=== PATIENT | female | born 1950 | race Caucasian/White ===

== ENCOUNTER 2016-09-20 11:04 | Inpatient (IN) | payer OTHER ==
[~2016-09-20] VITALS: Ht 149.9 cm; Wt 70.8 kg
[2016-09-20 11:57] LABS: BASOPHIL % 0.3 % (0-2); PLATELET COUNT 234 x10^3mcL (130-400)
[2016-09-20 11:58] LABS: RED CELL DISTRIBUTION WIDTH 16.5 % (11.5-14.5)
[2016-09-20 12:02] LABS: CALCIUM 9.3 mg/dL (8.5-10.1); CARBON DIOXIDE 36.7 mmol/L (21-32); CHLORIDE SERUM 100 mmol/L (98-107); CREATININE SERUM 0.9 mg/dL (0.6-1.0); GFR1 > 60 mL/min; GLUCOSE SERUM 240 mg/dL (74-106); POTASSIUM SERUM 3.7 mmol/L (3.5-5.1); SODIUM SERUM 142 mmol/L (136-145)
[2016-09-20 12:07] LABS: ALBUMIN 3.3 g/dL (3.4-5.0); ALKALINE PHOSPHATASE 95 U/L (46-116); ALT/SGPT 39 U/L (14-59); AST/SGOT 41 U/L (15-37); BILIRUBIN TOTAL 0.4 mg/dL (0.20-1.00)
[2016-09-20 13:59] LABS: MAGNESIUM 1.3 mg/dL (1.8-2.4)
[2016-09-20 14:04] LABS: HDL CHOLESTEROL 48 mg/dL (40-60)
[2016-09-20 14:11] LABS: FREE T4 1.19 ng/dL (0.76-1.46); FREE THYROXINE INDEX 3.6 ug/dL (1.4-4.5); T3 TOTAL 1.39 ng/mL; T4(THYROXINE) 10.7 ug/dL (4.7-13.3)
[2016-09-20 14:22] LABS: TRIGLYCERIDES 475 mg/dL (<150)
[2016-09-20 14:23] LABS: CHOLESTEROL 212 mg/dL (<200); CHOLESTEROL/HDL RATIO 4.4
[2016-09-20 15:15] VITALS: BP 165/64
[2016-09-20 15:24] LABS: microscopic required? NO
[2016-09-20 16:18] LABS: urine erythrocyte NEGATIVE (NEGATIVE)
[2016-09-20 17:16] VITALS: BP 147/54
[2016-09-20] MEDS ORDERED: METFORMIN HCL850 MG PO (17:47)
[2016-09-20] MEDS ORDERED: PLA75 PO (17:48)
[2016-09-20] MEDS ORDERED: OYSCO 500-VIT1 EACH PO (17:49)
[2016-09-20] MEDS ORDERED: BENAZEPRIL HCL/1 TAB PO (17:50)
[2016-09-20] MEDS ORDERED: ASPIRIN LOW DOS81 MG PO (17:51)
[2016-09-20] MEDS ORDERED: ATENOLOL25 MG PO (17:51)
[2016-09-20] MEDS ORDERED: CILOSTAZOL50 M1 PO (17:52)
[2016-09-20] MEDS ORDERED: ANTI-GAS ULTRA180 MG PO (17:53)
[2016-09-20] MEDS ORDERED: TOUJEO300 U/ML (17:54)
[2016-09-20] MEDS ORDERED: NOVOLOG MIX 70/33 ML SQ ×2 (17:55)
[2016-09-20 21:13] VITALS: BP 108/62
[2016-09-21 05:59] VITALS: BP 133/50
[2016-09-21 06:04] LABS: BASOPHIL % 0.2 % (0-2); PLATELET COUNT 215 x10^3mcL (130-400)
[2016-09-21 06:22] LABS: CALCIUM 8.6 mg/dL (8.5-10.1); CARBON DIOXIDE 32.8 mmol/L (21-32); CHLORIDE SERUM 105 mmol/L (98-107); CREATININE SERUM 0.9 mg/dL (0.6-1.0); GFR1 > 60 mL/min; GLUCOSE SERUM 142 mg/dL (74-106); MAGNESIUM 1.8 mg/dL (1.8-2.4); POTASSIUM SERUM 3.9 mmol/L (3.5-5.1); SODIUM SERUM 143 mmol/L (136-145)
[2016-09-21 06:42] LABS: RED CELL DISTRIBUTION WIDTH 16.8 % (11.5-14.5)
[2016-09-21 09:19] VITALS: BP 156/50
[2016-09-21 13:44] VITALS: BP 147/54
[2016-09-21 21:26] VITALS: BP 155/57
[2016-09-22 06:18] VITALS: BP 146/53
[2016-09-22 06:30] LABS: BASOPHIL % 0.5 % (0-2); PLATELET COUNT 195 x10^3mcL (130-400)
[2016-09-22 06:40] LABS: CALCIUM 8.2 mg/dL (8.5-10.1); CARBON DIOXIDE 27.6 mmol/L (21-32); CHLORIDE SERUM 108 mmol/L (98-107); CREATININE SERUM 0.8 mg/dL (0.6-1.0); GFR1 > 60 mL/min; GLUCOSE SERUM 197 mg/dL (74-106); POTASSIUM SERUM 4.2 mmol/L (3.5-5.1); SODIUM SERUM 143 mmol/L (136-145)
[2016-09-22 07:00] LABS: RED CELL DISTRIBUTION WIDTH 16.5 % (11.5-14.5)
[2016-09-22 07:21] LABS: RED BLOOD CELLS 4.2 M/mm3 (4.10-5.10)
[2016-09-22 08:35] VITALS: BP 149/64
[2016-09-22 08:41] LABS: IRON 58 ug/dL (50-170); TOTAL IRON BINDING CAPACITY 328 ug/dL (250-450)
[2016-09-22] MEDS ORDERED: METFORMIN HCL1000 MG PO (09:55)
[2016-09-22] MEDS ORDERED: THERA TABS1 TAB PO (09:56)
[2016-09-22] MEDS ORDERED: LIPITOR40 MG PO (09:57)
[2016-09-22 13:13] VITALS: BP 174/54
[2016-09-22 13:23] VITALS: BP 174/54
[2016-09-22 14:56] VITALS: BP 162/78
[2016-09-22 15:53] VITALS: BP 157/78
== END 2016-09-22 19:50 | disposition home or self-care (01) | DRG 304 ==
LOC: ED 11:04 → DU 13:24
PROVIDERS: Emergency Medicine; ADMIT Family Medicine
DX: I16.1 Hypertensive emergency (principal); N17.0 Acute kidney failure with tubular necrosis; D68.69 Other thrombophilia; E44.1 Mild protein-calorie malnutrition; E11.65 Type 2 diabetes mellitus with hyperglycemia; E11.51 Type 2 diabetes mellitus with diabetic peripheral angiopathy without gangrene; E83.42 Hypomagnesemia; E86.0 Dehydration; I10 Essential (primary) hypertension; D50.9 Iron deficiency anemia, unspecified; E78.5 Hyperlipidemia, unspecified; E66.9 Obesity, unspecified; Z79.82 Long term (current) use of aspirin; Z79.4 Long term (current) use of insulin; Z68.31 Body mass index [BMI] 31.0-31.9, adult; Z79.84 Long term (current) use of oral hypoglycemic drugs; Z86.73 Personal history of transient ischemic attack (TIA), and cerebral infarction without residual deficits
CPT/HCPCS: 82962; 83880; 84439; J0360; J2405; J3475; J7030; Q0092

== ENCOUNTER 2016-09-29 14:50 | Emergency (ER) | payer OTHER ==
[~2016-09-29 14:50] MED LIST: ANTI-GAS ULTRA180 MG PO; ASPIRIN LOW DOS81 MG PO; ATENOLOL25 MG PO; BENAZEPRIL HCL/1 TAB PO; CILOSTAZOL50 M1 PO; LIPITOR40 MG PO; METFORMIN HCL1000 MG PO; METFORMIN HCL850 MG PO; NOVOLOG MIX 70/33 ML SQ; OYSCO 500-VIT1 EACH PO; PLA75 PO; THERA TABS1 TAB PO; TOUJEO300 U/ML
[2016-09-29 16:48] VITALS: BP 157/81
== END 2016-09-29 16:48 | disposition home or self-care (01) ==
LOC: ED 14:50
DX: B34.9 Viral infection, unspecified (principal); J98.01 Acute bronchospasm; I10 Essential (primary) hypertension; E78.5 Hyperlipidemia, unspecified; E11.9 Type 2 diabetes mellitus without complications; Z88.0 Allergy status to penicillin; Z79.899 Other long term (current) drug therapy
CPT/HCPCS: J7512; J7613; J7644; Q0092

== ENCOUNTER 2016-10-27 22:05 | Emergency (ER) | payer OTHER ==
[2016-10-27 22:16] VITALS: BP 160/68
== END 2016-10-28 00:02 | disposition home or self-care (01) ==
LOC: ED 22:05
DX: S40.011A Contusion of right shoulder, initial encounter (principal); S50.01XA Contusion of right elbow, initial encounter; S16.1XXA Strain of muscle, fascia and tendon at neck level, initial encounter; S09.90XA Unspecified injury of head, initial encounter; I10 Essential (primary) hypertension; E11.9 Type 2 diabetes mellitus without complications; Z79.84 Long term (current) use of oral hypoglycemic drugs; Z79.899 Other long term (current) drug therapy; Z79.82 Long term (current) use of aspirin; Z79.4 Long term (current) use of insulin; W07.XXXA Fall from chair, initial encounter; Y93.89 Activity, other specified; Y92.830 Public park as the place of occurrence of the external cause; Y99.8 Other external cause status

== ENCOUNTER 2016-12-04 13:45 | Inpatient (IN) | payer OTHER ==
[~2016-12-04] VITALS: Ht 149.9 cm; Wt 70.3 kg
[2016-12-04 17:04] LABS: microscopic required? NO
[2016-12-04 17:12] LABS: UA SPECIFIC GRAVITY 1.015 (1.005-1.035); urine erythrocyte NEGATIVE (NEGATIVE)
[2016-12-04 17:20] LABS: BASOPHIL % 0.3 % (0-2); PLATELET COUNT 242 x10^3mcL (130-400)
[2016-12-04 17:21] LABS: RED CELL DISTRIBUTION WIDTH 15.6 % (11.5-14.5)
[2016-12-04 17:28] LABS: ALKALINE PHOSPHATASE 141 U/L (46-116); BILIRUBIN TOTAL 0.28 mg/dL (0.20-1.00); CALCIUM 8.2 mg/dL (8.5-10.1); CARBON DIOXIDE 24.5 mmol/L (21-32); CHLORIDE SERUM 98 mmol/L (98-107); CHOLESTEROL 165 mg/dL (<200); CREATININE SERUM 1.1 mg/dL (0.6-1.0); GFR1 53 mL/min; LIPASE 316 IU/L (73-393); POTASSIUM SERUM 3.9 mmol/L (3.5-5.1); SODIUM SERUM 133 mmol/L (136-145); TOTAL PROTEIN, SERUM 6.9 g/dL (6.4-8.2)
[2016-12-04 17:50] LABS: ALT/SGPT 25 U/L (14-59); AST/SGOT 44 U/L (15-37)
[2016-12-04 17:53] LABS: FREE T4 1.11 ng/dL (0.76-1.46); FREE THYROXINE INDEX 3.2 ug/dL (1.4-4.5); T3 TOTAL 0.94 ng/mL; T4(THYROXINE) 9.5 ug/dL (4.7-13.3)
[2016-12-04 17:55] LABS: ALBUMIN 3.2 g/dL (3.4-5.0)
[2016-12-04 17:56] LABS: HDL CHOLESTEROL 33 mg/dL (40-60); TRIGLYCERIDES 921 mg/dL (<150)
[2016-12-04 17:57] LABS: GLUCOSE SERUM 532 mg/dL (74-106)
[2016-12-04 22:27] VITALS: BP 145/57
[2016-12-05] MEDS ORDERED: SIMVASTATIN10 M1 PO (01:01)
[2016-12-05] MEDS ORDERED: VASCEPA1 GM PO (01:06)
[2016-12-05] MEDS ORDERED: LINZESS290 MCG PO (01:08)
[2016-12-05 01:27] LABS: MAGNESIUM 1.6 mg/dL (1.8-2.4)
[2016-12-05 01:37] LABS: PHOSPHOROUS 3.8 mg/dL (2.5-4.9)
[2016-12-05 06:25] VITALS: BP 130/54
[2016-12-05 07:26] LABS: BASOPHIL % 0.4 % (0-2); PLATELET COUNT 231 x10^3mcL (130-400)
[2016-12-05 07:27] LABS: CALCIUM 8.5 mg/dL (8.5-10.1); CARBON DIOXIDE 29.5 mmol/L (21-32); CHLORIDE SERUM 108 mmol/L (98-107); CREATININE SERUM 0.9 mg/dL (0.6-1.0); GFR1 > 60 mL/min; GLUCOSE SERUM 177 mg/dL (74-106); MAGNESIUM 1.7 mg/dL (1.8-2.4); POTASSIUM SERUM 4.3 mmol/L (3.5-5.1); SODIUM SERUM 143 mmol/L (136-145)
[2016-12-05 07:55] LABS: RED CELL DISTRIBUTION WIDTH 15.8 % (11.5-14.5)
[2016-12-05 09:15] VITALS: BP 168/70
[2016-12-05 10:20] LABS: RED BLOOD CELLS 4.69 M/mm3 (4.10-5.10)
[2016-12-05 11:21] LABS: IRON 53 ug/dL (50-170); TOTAL IRON BINDING CAPACITY 348 ug/dL (250-450)
[2016-12-05 13:45] VITALS: BP 135/59
[2016-12-05 18:25] VITALS: BP 130/45
[2016-12-05 21:38] VITALS: BP 148/71
[2016-12-06 06:20] VITALS: BP 144/57
[2016-12-06 06:41] LABS: BASOPHIL % 0.2 % (0-2); PLATELET COUNT 198 x10^3mcL (130-400)
[2016-12-06 06:52] LABS: CALCIUM 8.7 mg/dL (8.5-10.1); CHLORIDE SERUM 104 mmol/L (98-107); CREATININE SERUM 0.8 mg/dL (0.6-1.0); GFR1 > 60 mL/min; GLUCOSE SERUM 161 mg/dL (74-106); MAGNESIUM 1.4 mg/dL (1.8-2.4); PHOSPHOROUS 3.6 mg/dL (2.5-4.9); POTASSIUM SERUM 4.6 mmol/L (3.5-5.1); RED CELL DISTRIBUTION WIDTH 15.6 % (11.5-14.5); SODIUM SERUM 141 mmol/L (136-145)
[2016-12-06 08:39] VITALS: BP 149/71
[2016-12-06 13:52] VITALS: BP 147/63
[2016-12-06] MEDS ORDERED: MAGNESIUM OXID400 MG PO (14:41)
[2016-12-06 14:54] VITALS: BP 147/63
== END 2016-12-06 18:00 | disposition home or self-care (01) | DRG 815 ==
LOC: ED 13:45 → DU 21:22
PROVIDERS: Specialist; ADMIT Family Medicine
DX: I88.9 Nonspecific lymphadenitis, unspecified (principal); E44.1 Mild protein-calorie malnutrition; E87.1 Hypo-osmolality and hyponatremia; K57.90 Diverticulosis of intestine, part unspecified, without perforation or abscess without bleeding; E83.39 Other disorders of phosphorus metabolism; E11.65 Type 2 diabetes mellitus with hyperglycemia; E11.51 Type 2 diabetes mellitus with diabetic peripheral angiopathy without gangrene; M47.9 Spondylosis, unspecified; M41.9 Scoliosis, unspecified; E78.5 Hyperlipidemia, unspecified; D50.9 Iron deficiency anemia, unspecified; E66.9 Obesity, unspecified; Z68.32 Body mass index [BMI] 32.0-32.9, adult; Z86.73 Personal history of transient ischemic attack (TIA), and cerebral infarction without residual deficits; Z79.4 Long term (current) use of insulin; Z79.82 Long term (current) use of aspirin
CPT/HCPCS: 36600; 72072; 82962; 83880; 84439; J1815; J1885; J2270; J2405; J3010; J3475; J7030; Q9966; Q9967

== ENCOUNTER 2017-03-29 22:46 | Emergency (ER) | payer OTHER ==
[~2017-03-29 22:46] MED LIST changes: +LINZESS290 MCG PO; +MAGNESIUM OXID400 MG PO; +SIMVASTATIN10 M1 PO; +VASCEPA1 GM PO
[2017-03-30 00:04] VITALS: BP 134/54
== END 2017-03-30 00:04 | disposition home or self-care (01) ==
LOC: ED 22:46
DX: S46.811A Strain of other muscles, fascia and tendons at shoulder and upper arm level, right arm, initial encounter (principal); G44.209 Tension-type headache, unspecified, not intractable; I10 Essential (primary) hypertension; E11.9 Type 2 diabetes mellitus without complications; E78.00 Pure hypercholesterolemia, unspecified; E88.81 Metabolic syndrome and other insulin resistance; Z79.84 Long term (current) use of oral hypoglycemic drugs; Z79.4 Long term (current) use of insulin; X58.XXXA Exposure to other specified factors, initial encounter; Y93.89 Activity, other specified; Y99.8 Other external cause status; Y92.89 Other specified places as the place of occurrence of the external cause
CPT/HCPCS: J1885

== ENCOUNTER 2017-06-09 21:15 | Emergency (ER) | payer OTHER ==
[2017-06-09 23:13] VITALS: BP 155/76
== END 2017-06-09 23:13 | disposition home or self-care (01) ==
LOC: ED 21:15
DX: J04.0 Acute laryngitis (principal); F41.9 Anxiety disorder, unspecified; I10 Essential (primary) hypertension; E11.9 Type 2 diabetes mellitus without complications; E78.00 Pure hypercholesterolemia, unspecified; Z88.0 Allergy status to penicillin
CPT/HCPCS: J1885

== ENCOUNTER 2017-07-18 09:14 | Emergency (ER) | payer OTHER ==
[~2017-07-18] VITALS: Ht 157.5 cm; Wt 70.8 kg
[2017-07-18 09:23] VITALS: Ht 157.5 cm; Wt 70.8 kg
[2017-07-18 12:11] LABS: BASOPHIL % 0.2 % (0-2); PLATELET COUNT 260 x10^3mcL (130-400)
[2017-07-18 12:17] LABS: RED CELL DISTRIBUTION WIDTH 15.1 % (11.5-14.5)
[2017-07-18 12:23] LABS: CALCIUM 9.1 mg/dL (8.5-10.1); CARBON DIOXIDE 23.4 mmol/L (21-32); CREATININE SERUM 1.2 mg/dL (0.6-1.0); POTASSIUM SERUM 3.9 mmol/L (3.5-5.1)
[2017-07-18 14:36] VITALS: BP 134/88
== END 2017-07-18 14:36 | disposition home or self-care (01) ==
LOC: ED 09:14
PROVIDERS: Specialist
DX: J20.9 Acute bronchitis, unspecified (principal); I10 Essential (primary) hypertension; E11.9 Type 2 diabetes mellitus without complications; Z88.0 Allergy status to penicillin
CPT/HCPCS: J7030; J7613; J7644; Q9967

== ENCOUNTER 2018-04-18 17:58 | Emergency (ER) | payer OTHER ==
[~2018-04-18] VITALS: Ht 152.4 cm; Wt 63.5 kg
[2018-04-18 18:02] VITALS: BP 147/68; Ht 152.4 cm; Wt 63.5 kg
== END 2018-04-18 18:31 | disposition home or self-care (01) ==
LOC: ED 17:58
DX: K21.9 Gastro-esophageal reflux disease without esophagitis (principal); E11.9 Type 2 diabetes mellitus without complications; I10 Essential (primary) hypertension; Z88.0 Allergy status to penicillin; E78.00 Pure hypercholesterolemia, unspecified; Z86.73 Personal history of transient ischemic attack (TIA), and cerebral infarction without residual deficits; Z90.49 Acquired absence of other specified parts of digestive tract; Z90.89 Acquired absence of other organs
CPT/HCPCS: 82962

== ENCOUNTER 2018-09-04 01:05 | Emergency (ER) | payer OTHER ==
[~2018-09-04] VITALS: Ht 149.9 cm; Wt 69.4 kg
[2018-09-04 01:11] VITALS: Ht 149.9 cm; Wt 69.4 kg
[2018-09-04 03:24] VITALS: BP 145/82
== END 2018-09-04 03:24 | disposition home or self-care (01) ==
LOC: ED 01:05
DX: Z48.01 Encounter for change or removal of surgical wound dressing (principal); I10 Essential (primary) hypertension; E11.9 Type 2 diabetes mellitus without complications; E78.00 Pure hypercholesterolemia, unspecified; Z90.49 Acquired absence of other specified parts of digestive tract; Z90.89 Acquired absence of other organs; Z88.0 Allergy status to penicillin; Z86.73 Personal history of transient ischemic attack (TIA), and cerebral infarction without residual deficits

== ENCOUNTER 2018-09-13 04:51 | Emergency (ER) | payer OTHER ==
[~2018-09-13] VITALS: Ht 149.9 cm; Wt 70.3 kg
[2018-09-13 04:54] VITALS: Ht 149.9 cm; Wt 70.3 kg
[2018-09-13 06:14] LABS: microscopic required? NO
[2018-09-13 06:18] LABS: urine erythrocyte NEGATIVE (NEGATIVE)
[2018-09-13 06:36] LABS: BASOPHIL % 0.2 % (0-2); PLATELET COUNT 279 x10^3mcL (130-400)
[2018-09-13 06:49] LABS: RED CELL DISTRIBUTION WIDTH 15.4 % (11.5-14.5)
[2018-09-13 06:59] LABS: CALCIUM 9.7 mg/dL (8.5-10.1); CARBON DIOXIDE 23.1 mmol/L (21-32); CHLORIDE SERUM 96 mmol/L (98-107); GFR1 59 mL/min; GLUCOSE SERUM 209 mg/dL (74-106); POTASSIUM SERUM 3.6 mmol/L (3.5-5.1); SODIUM SERUM 129 mmol/L (136-145)
[2018-09-13 07:04] LABS: ALKALINE PHOSPHATASE 70 U/L (46-116); ALT/SGPT 26 U/L (14-59); AST/SGOT 18 U/L (15-37); BILIRUBIN TOTAL 0.42 mg/dL (0.20-1.00); LIPASE 382 IU/L (73-393); TOTAL PROTEIN, SERUM 6.4 g/dL (6.4-8.2)
[2018-09-13 07:06] VITALS: BP 127/83
[2018-09-13 07:06] LABS: ALBUMIN 3.1 g/dL (3.4-5.0)
== END 2018-09-13 07:06 | disposition home or self-care (01) ==
LOC: ED 04:51
PROVIDERS: Emergency Medicine
DX: K57.92 Diverticulitis of intestine, part unspecified, without perforation or abscess without bleeding (principal); I10 Essential (primary) hypertension; E11.9 Type 2 diabetes mellitus without complications; E78.00 Pure hypercholesterolemia, unspecified; Z88.0 Allergy status to penicillin; Z90.49 Acquired absence of other specified parts of digestive tract
CPT/HCPCS: J1885; J2405

== ENCOUNTER 2018-12-26 13:52 | Inpatient (IN) | payer OTHER ==
[~2018-12-26] VITALS: Ht 149.9 cm; Wt 68.1 kg
[2018-12-26 13:58] VITALS: Ht 149.9 cm; Wt 68.1 kg
--- NOTE | 2018-12-26 14:21 | NUR ---
PER PT HAS BEEN FEELING WEAK FOR ONE DAY. PER PT SHE STS SHE HAS SOME "NUMBNESS" TO HER LEFT ARM AND FINGERS. PT STS THE LAST TIME SHE FELT THIS WAY SHE NEEDED A BLOOD TRANSFUSION. PER PT SHE HAS SOME DIZZINESS -N/V. PER PT SHE HAS BEEN HAVING CHEST PRESSURE OFF AND ON. PT DENIES ANY ABDOMINAL PAIN AT THIS TIME. NO NEUROLOGICAL DEFICITS NOTED. -FACIAL DROOP, +HERBARIUM CURATOR EQUAL. VSS. PT PLACED ON FULL CM. RESP E/U. WILL CONTINUE TO MONITOR.
[2018-12-26 14:48] LABS: BASOPHIL % 0.4 % (0-2); PLATELET COUNT 254 x10^3mcL (130-400)
[2018-12-26 14:52] LABS: RED CELL DISTRIBUTION WIDTH 16.2 % (11.5-14.5)
[2018-12-26 14:53] LABS: CALCIUM 8.6 mg/dL (8.5-10.1); CARBON DIOXIDE 27.3 mmol/L (21-32); CHLORIDE SERUM 97 mmol/L (98-107); CREATININE SERUM 1.1 mg/dL (0.6-1.0); GFR1 52 mL/min; GLUCOSE SERUM 217 mg/dL (74-106); POTASSIUM SERUM 3.8 mmol/L (3.5-5.1); SODIUM SERUM 136 mmol/L (136-145)
[2018-12-26 14:58] LABS: ALBUMIN 3.4 g/dL (3.4-5.0); ALKALINE PHOSPHATASE 102 U/L (46-116); ALT/SGPT 28 U/L (14-59); AST/SGOT 28 U/L (15-37); BILIRUBIN TOTAL 0.4 mg/dL (0.20-1.00); TOTAL PROTEIN, SERUM 6.9 g/dL (6.4-8.2)
[2018-12-26 15:51] LABS: microscopic required? NO
[2018-12-26 16:14] LABS: UA SPECIFIC GRAVITY <=1.005 (1.005-1.035); urine erythrocyte NEGATIVE (NEGATIVE)
--- NOTE | 2018-12-26 16:57 | NUR ---
PT AMBULATED TO RESTROOM WITH STEADY GAIT.
--- NOTE | 2018-12-26 17:15 | NUR ---
PT AMBULATED TO RESTROOM WITH STEADY GAIT.
[2018-12-26 17:57] LABS: MAGNESIUM 1.4 mg/dL (1.8-2.4); PHOSPHOROUS 4.6 mg/dL (2.5-4.9)
[2018-12-26 18:00] LABS: CHOLESTEROL/HDL RATIO 2.6
--- NOTE | 2018-12-26 18:01 | NUR ---
REPORT GIVEN TO SURU RN TO ASSUME CARE OF PT.
[2018-12-26 18:41] VITALS: BP 141/43
--- NOTE | 2018-12-26 18:42 | NUR ---
RECEIVED PT FROM ED VIA [facility] At Once!. ORIENTED PT TO ROOM AND SURROUNDINGS. IV NOTED TO LAC PATENT AND INTACT. TELE 2 PLACED ON PT READING SR. LAB REPORTED THAT PT LACTIC ACID IS 4.1. RESIDENT PAGED. CALL LIGHT WITHIN REACH AND BED IN LOWEST POSITION
[2018-12-26 19:18] LABS: AMPHETAMINE QUAL UR NONE DETECTED (See below)
--- NOTE | 2018-12-26 19:30 | NUR ---
RECEIVED PT IN BED RESTING WITH FAMILY AT BEDSIDE. AOX4. LUNG SOUND CTA.BREATHING EVEN AND UNLABORED.DENIES ANY CP. C/O SOSA 11/12. WILL MEDICATE ORDERED. IV SITE PATENT AND INTACT. BED IN LOWEST POSITION,CALL LIGHT WITHIN REACH. WILL CONTINUE TO MONITOR.
--- NOTE | 2018-12-26 21:08 | NUR ---
PT OFF THE FLOOR TO CT. AAOX4. NO SOB NOTED. WILL CONTINUE TO MONITOR.
--- NOTE | 2018-12-26 21:31 | NUR ---
PT BACK FROM CT. WILL CONTINUE TO MONITOR.
[2018-12-26 21:37] VITALS: BP 139/53
--- NOTE | 2018-12-27 05:31 | NUR ---
PT APPEARS TO BE SLEEPING.NO SOB NOTED.DENIES ANY CP/PRESSURE AT THIS TIME. NO C/O SOSA OR DIZZINESS. BED IN LOWEST POSITION,CALL LIGHT WITHIN REACH. WILL CONTINUE TO MONITOR.
[2018-12-27 06:12] VITALS: BP 135/59
--- NOTE | 2018-12-27 07:19 | NUR ---
CARE ENDORSED TO DAY NURSE
--- NOTE | 2018-12-27 07:22 | NUR ---
RECEIVED HAND OFF REPORT FROM NIGHT NURSE, PATIENT RECIVING ULTRA SOUND A THIS TIME, TECH AT BEDSIDE. PATIENT NO COMPLAINING OF PAIN OR DISCOMFORT, WILL CONTINUE TO MONITOR
[2018-12-27 08:12] LABS: IRON 36 ug/dL (50-170); TOTAL IRON BINDING CAPACITY 292 ug/dL (250-450)
[2018-12-27 08:55] VITALS: BP 150/56
--- NOTE | 2018-12-27 10:27 | NUR ---
PATIENT FAMILY AT BEDSIDE, NO COMPLAINTS AT THIS TIME. CALL LIGHT WITHIN REACH
--- NOTE | 2018-12-27 12:00 | NUR ---
INFORMED PATIENT THAT DUE TO REPORTS OF CHOKING ON [facility]A SWALLOW EVALUATION IS STILL PENDING. ST WILL BE IN TODAY. PATIENT STATES SHE ONLY HAS PROBLEMS WITH THIN LIQUIDS NOT SOLID FOOD. PATIENT COMPLAINING OF HEADACHE 09/12. ADMINISTERED TYLENOL PER JUL. FAMILY AT BEDSIDE AND CALL LIGHT WITHIN REACH
[2018-12-27 12:32] VITALS: BP 152/51
--- NOTE | 2018-12-27 14:21 | NUR ---
PATIENT ASKING WHEN SWALLOW EVALUATION IS GOING TO TAKE PLACE, WILL CALL TECH AND QUESTION TIME FRAME. PATIENT WANTS TO EAT
--- NOTE | 2018-12-27 14:45 | NUR ---
BED SIDE NURSING SWALLOW EVAL COMPLETED PER DR ORDER. PT WAS ABLE TO TOLERATE APPLESAUCE, NO DISTRESS NOTED. DIET ADVANCED TO PUREE DIET. PT DID NOT COMPLAIN OF ANY DIFFICULTY SWALLOWING. INFORMED PT THAT SPEECH THERAPIST WILL BE HERE TOMORROW TO EVALUATE PATIENT. PRIMARY NURSE MADE AWARE
[2018-12-27 16:25] VITALS: BP 120/57
--- NOTE | 2018-12-27 16:27 | NUR ---
SPEECH THERAPIST IS HERE TO DO SWALLOW EVALUATION.
--- NOTE | 2018-12-27 16:52 | NUR ---
SWALLOW EVAL FINISHED, RECOMENDED MECHANICAL SOFT DIET WITH THIN LIQUIDS. INFORMED DR. NAYLOR AND NEW DIETARY ORDER ENTERED.
--- NOTE | 2018-12-27 16:57 | NUR ---
PT WAS SEEN FOR DYSPHAGIA. PT WAS ABLE TO SAFELY SWALLOW MS DIET WITH THIN LIQUID WITHOUT S/S OF ASPIRATION. PT HAD MILD DIFFICULTY WITH REGULAR DIET. RECOMMENDATION MS DIET WITH THIN LIQUID SMALL BITES AND SIPS ONLY.
--- NOTE | 2018-12-27 17:10 | NUR ---
CALLED DR NAYLOR REGARDING NEW ORDER FOR PO MAGNESIUM. INFOMRED DR THAT PATIENT ALREADY RECEIVED PO MAGNESIUM LAST NIGHT AT 2100. DR NAYLOR STATED HE WOULD D/C THE ORDER FOR MAGNESIUM AND AWAIT AM LAB DRAW
--- NOTE | 2018-12-27 17:40 | NUR ---
BLOOD SURGAR RESULT WAS 289, COVERED WITH 9 UNITS OF INSULIN PER SLIDING SCALE. PATIENT IS NOW ON A MECHANICAL SOFT DIET AND WAS ENCOURAGED TO EAT. ASSITED WITH TRAY SET UP/ FAMILY AT BEDSIDE. CALL LIGHT WITHIN REACH
--- NOTE | 2018-12-27 19:20 | NUR ---
PT RECEIVED A/O X4, BAHRAINI SPEAKING, ABLE TO MAKE NEEDS KNOWN. TELE #2, PT ADMITTED FOR CP, BUT DENIES ANY CP/PRESSURE AT THIS TIME. TROP (-) X3. PULSES PALPABLE, NO EDEMA PRESENT. BREATHING IS EVEN AND UNLABORED ON RA, DENIES SOB, NO RESP DISTRESS NOTED. ABD SOFT AND NONDISTENDED, DENIES N/V. VOIDS FREELY, BRP. GENERALIZED WEAKNESS. SKIN IS WARM AND DRY, INTACT. PT DENIES HAVING ANY PAIN AT THIS TIME. IV TO LAC, PATENT AND INTACT, SITE WNL. NO ACUTE DISTRESS NOTED. CALL LIGHT WITHIN REACH. WILL CONT TO MONITOR.
[2018-12-27 19:59] VITALS: BP 155/61
[2018-12-27 20:09] VITALS: BP 106/66
--- NOTE | 2018-12-27 21:33 | NUR ---
PT C/O INSOMNIA AND REQUESTING SLEEP MEDICATION. DR MENDOZA CALLED AND MADE AWARE. ORDERS RECEIVED. PRN AMBIEN PO GIVEN ORDERED. WILL CONT TO MONITOR.
--- NOTE | 2018-12-28 00:49 | NUR ---
PT RESTING IN BED WITH EYES CLOSED, BUT IS EASILY AROUSABLE. BREATHING IS EVEN AND UNLABORED, NO RESP DISTRESS NOTED. NO S/S OF PAIN OBSERVED. IVF INFUSING WELL, SITE WNL. NO ACUTE DISTRESS NOTED. CALL LIGHT WITHIN REACH. WILL CONT TO MONITOR.
[2018-12-28 04:39] VITALS: BP 135/51
--- NOTE | 2018-12-28 05:05 | NUR ---
PT SLEPT WELL THROUGHOUT THE EVENING. PT REPORTS SLEEPING PILL WAS VERY HELPFUL. BREATHING IS EVEN AND UNLABORED, NO RESP DISTRESS NOTED. PT DENIES HAVING ANY PAIN AT THIS TIME AND HAD NO EPISODES OF CP/PRESSURE DURING THE NIGHT. NO ACUTE CHANGES ENCOUNTERED DURING SHIFT. ALL NEEDS MET AND ANTICIPATED. IVF INFUSING WELL TO LAC, SITE WNL. CALL LIGHT WITHIN REACH. WILL ENDORSE CARE TO AM NURSE.
[2018-12-28 05:24] VITALS: BP 108/69
[2018-12-28 05:38] LABS: CALCIUM 8.5 mg/dL (8.5-10.1); CHLORIDE SERUM 105 mmol/L (98-107); CREATININE SERUM 0.9 mg/dL (0.6-1.0); GFR1 > 60 mL/min; GLUCOSE SERUM 183 mg/dL (74-106); MAGNESIUM 1.5 mg/dL (1.8-2.4); PHOSPHOROUS 3.7 mg/dL (2.5-4.9); SODIUM SERUM 141 mmol/L (136-145)
[2018-12-28 05:45] LABS: BASOPHIL % 0.4 % (0-2); PLATELET COUNT 218 x10^3mcL (130-400)
--- NOTE | 2018-12-28 07:31 | NUR ---
PT IN NO ACUTE DISTRESS. CONTINUITY OF CARE ENDORSED TO ROSALIO MARKS. ALL QUESTIONS AND CONCERNS ADDRESSED.
[2018-12-28 07:40] LABS: RED CELL DISTRIBUTION WIDTH 16.4 % (11.5-14.5)
--- NOTE | 2018-12-28 07:58 | NUR ---
RECEIVED HAND OFF REPORT FROM MARY GRACE RN, PATIENT SITTING UP IN BED AT THIS TIME, NO COMPLAINTS. TELE [address] READING NSR. PATIENT STATED SHE SLEPT WELL DURING THE NIGHT. CALL LIGHT WITHIN REACH WILL CONTINUE TO MONITOR
[2018-12-28 08:15] VITALS: BP 159/63
--- NOTE | 2018-12-28 09:05 | NUR ---
ADMINISTERED MEDICATIONS PER MAR. PATIENT EDUCATED ABOUT MAGNESIUM IV THAT SHE IS RECEIVING. PATIENT HAD NO COMPLAINTS AT THIS TIME.
--- NOTE | 2018-12-28 10:00 | NUR ---
PATIENT PROVIDED STOOL SAMPLE FOR OCCULT BLOOD TEST. SAMPLE MARKED AND TAKEN TO LAB
--- NOTE | 2018-12-28 12:11 | NUR ---
BLOOD GLUCOSE RESULT WAS 376. COVERED WITH 15 UBNITS REGULAR INSULIN PER MAR. PATIENT ENCOURAGED TO EAT WHEN LUNCH TRAY COMES. INFOMRED PATIENT OF PENDING DISCHARGE, PATIENT AWARE PER PANEL MAKER. CALL LIGHT WITHIN REACH
[2018-12-28 12:22] VITALS: BP 144/56
[2018-12-28] MEDS ORDERED: BRILINTA90 M1 PO (12:24)
[2018-12-28] MEDS ORDERED: CARVEDILOL6.25 M1 PO (12:24)
--- NOTE | 2018-12-28 13:20 | NUR ---
DISCHARGE ORDER IN PLACE AND PATIENT AGREES WITH DECISION TO BE DISCHARGED. FAMILY AT BEDSIDE FOR DISHCARGE TEACHING. WENT OVER HOSPITAL STAY WITH PATIENT AND ANSWERED QUESTIONS FROM PATIENT AND FAMILY. PATIENT STATES SHE IS PLANNING TO FOLLOW UP WITH PCP. PROVIDED PATIENT WITH X2 PRESCRIPTIONS AND EDUCATED PATIENT ABOUT MEDICATIONS. NO ADDITIONAL QUESTIONS AT THIS TIME. REMOVED IDBANDS, AND IV REMOVED FROM LEFT AC, CATH INTACT. NO REDNESS, SWELLING AND BLEEDING CONTROLLED. TELE #2 REMOVED FROM PATIENT AND RETURNED TO [facility]. PATIENT DRESSED AND WAS ESCORTED OFF UNIT BY AMARIS GONZALEZ, WITH ALL BELINGINGS ON PERSON.
[2018-12-28 13:36] VITALS: BP 144/56
== END 2018-12-28 14:36 | disposition home or self-care (01) | DRG 73 ==
LOC: ED 13:52 → DU 17:26
PROVIDERS: Emergency Medicine; ADMIT General Practice
DX: G90.8 Other disorders of autonomic nervous system (principal); N17.0 Acute kidney failure with tubular necrosis; E86.0 Dehydration; I10 Essential (primary) hypertension; D50.9 Iron deficiency anemia, unspecified; E11.9 Type 2 diabetes mellitus without complications; E83.42 Hypomagnesemia; I25.10 Atherosclerotic heart disease of native coronary artery without angina pectoris; I73.9 Peripheral vascular disease, unspecified; E78.5 Hyperlipidemia, unspecified; Z79.4 Long term (current) use of insulin; Z68.31 Body mass index [BMI] 31.0-31.9, adult; Z95.1 Presence of aortocoronary bypass graft; Z95.5 Presence of coronary angioplasty implant and graft; Z86.73 Personal history of transient ischemic attack (TIA), and cerebral infarction without residual deficits
CPT/HCPCS: 82962; 83880; 92526-GN; 92610-GN; 97116-GP; C9113; G0378; J1956; J3475; J7030; Q0092

== ENCOUNTER 2019-01-07 11:31 | Inpatient (IN) | payer OTHER ==
[~2019-01-07] VITALS: Ht 149.9 cm; Wt 67.1 kg
[~2019-01-07 11:31] MED LIST changes: +BRILINTA90 M1 PO; +CARVEDILOL6.25 M1 PO
[2019-01-07 12:15] LABS: BASOPHIL % 0.2 % (0-2); PLATELET COUNT 288 x10^3mcL (130-400); RED CELL DISTRIBUTION WIDTH 16.6 % (11.5-14.5)
[2019-01-07 12:23] LABS: CALCIUM 8.3 mg/dL (8.5-10.1); CARBON DIOXIDE 25.1 mmol/L (21-32); CREATININE SERUM 1.1 mg/dL (0.6-1.0); POTASSIUM SERUM 4.3 mmol/L (3.5-5.1)
[2019-01-07 12:28] LABS: ALBUMIN 3.7 g/dL (3.4-5.0); BILIRUBIN TOTAL 0.77 mg/dL (0.20-1.00); TOTAL PROTEIN, SERUM 7.5 g/dL (6.4-8.2)
--- NOTE | 2019-01-07 14:07 | NUR ---
REC'D A 68/F IN RM 12 WITH C/O LUQ WITH NONBLOODY DIARRHEA AND NAUSEA X 1 DAY. PT DESCRIBES THE PAIN IS SHARP IN QUALITY, AND NONRADIATING. PT AAOX4, CLEAR SPEECH, RESP E/U, IN NO ACUTE DISTRESS.
--- NOTE | 2019-01-07 14:17 | NUR ---
PROVIDED SPECIMEN CONTAINER FOR URINE. PT VERBALIZED UNDERSTANDING.
[2019-01-07] MEDS ORDERED: NOR10 PO (15:35)
[2019-01-07] MEDS ORDERED: METFORMIN850 M1 PO (15:35)
[2019-01-07] MEDS ORDERED: BENAZEPRIL HCL/1 TAB PO (15:35)
[2019-01-07] MEDS ORDERED: HYDRALAZINE HCL25 MG PO (15:36)
[2019-01-07] MEDS ORDERED: ASPIR 8181 MG PO (15:36)
[2019-01-07] MEDS ORDERED: TOUJEO300 U/ML SC (15:37)
[2019-01-07] MEDS ORDERED: NOVOLOG FLEX100 U/M1 SC (15:37)
[2019-01-07] MEDS ORDERED: CARVEDILOL6.25 M1 PO (15:38)
--- NOTE | 2019-01-07 15:47 | NUR ---
REPORT GIVEN TO KENDRICK ZARCO ON MED SURG FLOOR TO ASSUME CARE OF PT.
[2019-01-07 16:17] VITALS: BP 129/47
--- NOTE | 2019-01-07 16:28 | NUR ---
RECEIVED PT FROM ER, PT ADMIT FOR ABD PAIN, WHEEZING, VOMITING, DIARRHEA, PT IS A/O X4, VERBAL RESPONSIVE, ABLE TO TELL WHAT SHE NEEDS. LUNG SOUND CLEAR BILATERAL, NO COUGH, NO SOB, PT C/O SORE THROAT AT THIS MOMENT, DENY ANY CHEST PAIN OR DISCOMFORT, BOWEL SOUND PRESENT ALL 4 QUADRANTS, MILD DISTENTED. C/O MILD PAIN AT LEFT LOWER QUADRANT, 2/10, PEDAL PULSE PRESENT BOTH FEET, NO EDEMA, IV AT RIGHT HAND, NO LEAKING, NO INFILTRATION. ALL ADLS ASSIST, ALL NEED MET, CALL LIGHT IN REACH, WILL CONTINUE TO MONITOR.
--- NOTE | 2019-01-07 16:52 | NUR ---
ASSSUMED CARE FROM KATARZYNA RN, PT IN BED, IN NO ACUTE DISTRESS, FAMILY AT BEDSIDE, IV PATENT AND INFUSING WELL, NO INFILTRATION NOTED, REPORTED NO PAIN/DISCOMFORT AT THIS TIME, DRESSING CDI, ALL NEEDS ADDRESSED AT THIS TIME, SAFETY PROTOCOL FOLLOWED, COTNINUE TO MONITOR
--- NOTE | 2019-01-07 17:47 | NUR ---
PT LYING IN BED IN NO ACUTE DISTRESS, REFUSED PAIN/CP/PRESSURE, DENIED N/V/D, VERBAL, ABLE TO MAKE NEEDS KNOWN, FOLLOWED VERBAL COMMAND, RESP EVEN, NO SOB/COUGH, CHEST RISE SYMMETRICALLY, ABD ROUND AND MILD TENDER TO TOUCH, IV PATENT AND INFUSING WELL, CONTINENT, DRESSING CDI, FAMILY AT BEDSIDE, ALL NEEDS ADRESSED AT THIS TIME, SAFETY PROTOCOL FOLLOWED, CONTINUE TO MONITOR
--- NOTE | 2019-01-07 19:30 | NUR ---
PT IS A/O X4. MED SURG. DENIES ANY CHEST PAIN OR PRESSURE. PULSES ARE PRESENT. NO EDEMA NOTED. LUNGS CLEAR IN ALL FEILDS. ON RA, DENIES ANY SOB. EQUAL CHEST RISE AND FALL. NO SIGN OF RESP. DISTRESS. BOWEL SOUND PRESENT. COMPLAIN OF MILD ABD DISCOMFORT. DENIES PAIN. COMPLAINS OF DIARRHEA. SKIN IS INTACT. IV ON RH IS INTACT AND PATENT. NO SIGN OF INFILTRATION OR IRRITATION NOTED. FAMILY AT BEDSIDE. BED IS AT LOWEST SETTING. CALL LIGHT WITHIN REACH. WILL CONTINUE TO MONITOR.
[2019-01-07 20:26] VITALS: BP 130/54
--- NOTE | 2019-01-07 22:25 | NUR ---
STOOL SAMPLE COLLECTED AND SENT TO THE LAB.
--- NOTE | 2019-01-08 01:36 | NUR ---
PT IS RESTING IN BED WITH BOTH EYES CLOSED. BREATHING EVEN AND UNLABORED. NO SIGN OF DISTRESS NOTED. IV INTACT. BED IS AT LOWEST SETTTING. CALL LIGHT WITHIN REACH. WILL CONTINUE TO MONITOR.
--- NOTE | 2019-01-08 05:26 | NUR ---
PT TEMP IS 102. HEAVY BLANKETS REMOVED. COOLING MEASURES INITIATED. TORADOL GIVEN, SEE EMAR. PT DENIES ANY CHILLS. WILL RECHECK TEMP.
--- NOTE | 2019-01-08 05:38 | NUR ---
MD HARDEN MADE AWARE OF HIGH TEMP.
[2019-01-08 06:16] VITALS: BP 135/50
--- NOTE | 2019-01-08 06:16 | NUR ---
TEMP RECHECKED AND IS TRENDING DOWN. COOLING MEASURES STILL IN PLACE. IV INTACT. DENIES ANY CHILLS AND PAIN. MD HARDEN IS ALSO MADE AWARE OF PT REFUSING INSULIN THIS AM WITH BG OF 211. STATED THAT IS FINE SINCE PT IS NPO. BED IS AT LOWEST SETTING. CALL LIGHT WITHIN REACH. WILL ENDORSE TO AM NURSE.
[2019-01-08 06:20] LABS: CALCIUM 7.2 mg/dL (8.5-10.1); CARBON DIOXIDE 23.4 mmol/L (21-32); POTASSIUM SERUM 3.8 mmol/L (3.5-5.1)
[2019-01-08 06:27] LABS: BASOPHIL % 0.1 % (0-2); PLATELET COUNT 211 x10^3mcL (130-400)
[2019-01-08 06:35] LABS: RED CELL DISTRIBUTION WIDTH 16.8 % (11.5-14.5)
--- NOTE | 2019-01-08 07:05 | NUR ---
RECIEVED PT RESTING IN BED WITH NO C/O PAIN, DISTRESS, OR SOB. A/O X4 WITH NO SOSA OR DIZZINESS. D5NS RUNNING IN RIGHT HAND 22G. AT 100ML/HR, INTACT AND PATENT WITH NO REDNESS OR INFLAMMATION NOTED. SAFETY PRECAUTIONS IN PLACE, CALL LIGHT WITHIN REACH, WILL MONITOR.
[2019-01-08 08:34] VITALS: BP 130/53
--- NOTE | 2019-01-08 10:29 | NUR ---
DR ROSAS AT BEDSIDE WITH SOLID WASTE TECHNICIAN DISCUSSING POC AND TREATMENT WITH PT. PT VERBALIZES UNDERSTANDING. WILL CARRY OUT ANY NEW ORDERS.
[2019-01-08 10:49] LABS: TOTAL IRON BINDING CAPACITY 283 ug/dL (250-450)
[2019-01-08 10:55] LABS: IRON 14 ug/dL (50-170)
--- NOTE | 2019-01-08 11:23 | NUR ---
PT REPORTS 9/10 ABD PAIN, MEDICATED WITH MORPHINE PER EMAR. WILL REASSESS.
--- NOTE | 2019-01-08 15:01 | NUR ---
CONSENTS FOR EGD/COLONOSCOPY SIGNED BY PT AND PUT IN CHART. CHECKLIST ALSO STARTED, FILLED IN MUCH POSSIBLE, AND PUT IN CHART.
[2019-01-08 15:44] VITALS: Ht 149.9 cm; Wt 67.1 kg
[2019-01-08 17:39] VITALS: BP 138/63
--- NOTE | 2019-01-08 18:26 | NUR ---
PT STABLE AT THIS TIME WITH NO C/O PAIN OR DISTRESS. FAMILY AT BEDSIDE. ALL CARES TOLERATED ALL CARES WELL. VS WNL. A/OX4 WITH NO SOSA OR DIZZINESS. RESTING COMFORTABLY IN BED. IV INTACT AND PATENT TO RH, NO REDNESS OR INFLAMMATION NOTED. 1/2 NS 20MEQ KCL RUNNING AT 80ML/HR. SAFETY PRECAUTIONS IN PLACE, CALL LIGHT WITHIN REACH, WILL ENDORSE CARE TO NIGHT NURSE.
--- NOTE | 2019-01-08 19:30 | NUR ---
PT RECIEVED FROM DAY NURSE. PT RESTING IN BED AT THIS TIME. DENIES PAIN OR DISCOMFORT. SD A/O X4, CALM AND COOPERATIVE AT THIS TIME. PT MS, DENIES CP, NV, DIZZINESS, OR PALPATIONS. PALPABLE PULSES, NO EDEMA NOTED AT THIS TIME. BREATHING E/U, DENIES SOB. ABD SOFT AND ROUND, DENIES PAIN TO PALPATION. IV TO RH INTACT AND INFUSING. ALL QUESTIONS AND CONCERNS ADDRESSED AT THIS TIME. BED AT LOWEST POSITION. CALL LIGHT WITHIN REACH. WILL CONTINUE TO MONITOR.
[2019-01-08 21:28] VITALS: BP 139/61
--- NOTE | 2019-01-09 00:58 | NUR ---
PT RESTING IN BED AT THIS TIME. COMPLAINING OF 5/10 ABD PAIN. MEDICATED WTIH PRN TRAMADOL. BREATHING E/U ON RA, NO SIGNS OF ACUTE DISTRESS AT THIS TIME. WILL CONTINUE TO MONITOR.
[2019-01-09 05:32] VITALS: BP 113/60
[2019-01-09 06:24] LABS: BASOPHIL % 0.5 % (0-2); PLATELET COUNT 202 x10^3mcL (130-400)
--- NOTE | 2019-01-09 06:33 | NUR ---
PT RESTING IN BED AT THIS TIME. DENIES PAIN OR DISCOMFORT. BREATHING E/U ON RA. NO SIGNS OF ACUTE DISTRESS AT THIS TIME. ALL NEEDS AND CONCERNS ADDRESSED THIS SHIFT. BED AT LOWEST POSITION. CALL LIGHT WTIHIN REACH. WILL ENDORSE TO DAY NURSE.
[2019-01-09 06:41] LABS: CALCIUM 7.5 mg/dL (8.5-10.1); CHLORIDE SERUM 109 mmol/L (98-107); CREATININE SERUM 0.8 mg/dL (0.6-1.0); GFR1 > 60 mL/min; GLUCOSE SERUM 158 mg/dL (74-106); POTASSIUM SERUM 3.8 mmol/L (3.5-5.1); SODIUM SERUM 143 mmol/L (136-145)
[2019-01-09 06:47] LABS: RED CELL DISTRIBUTION WIDTH 16.5 % (11.5-14.5)
--- NOTE | 2019-01-09 07:30 | NUR ---
RECEIVED PATIENT IN BED, AWAKE, ALERT AND ORIENTED. NPO EXCEPT FOR MEDS FOR EGD AND COLONOSCOPY TODAY. HL RT HAND. RESP EVEN AND UNLABORED, LUNGS CLEAR ON ROOM AIR. PATIENT HAS BEEN USING BSC D/T BOWEL PREP BEING GIVEN. ABD SOFT AND ROUND, BOWEL SOUNDS ACTIVE. BM IS BROWNISH COLORED WATER. VOIDING WELL. NO EDEMA NOTED. DENIES ANY PAIN OR DISCOMFORT. WILL CONTINUE TO MONITOR.
[2019-01-09 07:56] VITALS: BP 119/52
--- NOTE | 2019-01-09 11:00 | NUR ---
PATIENT DOWN TO GI LAB FOR EGD AND COLONOSCOPY AT THIS TIME.
--- NOTE | 2019-01-09 13:00 | NUR ---
PATIENT RETURNED VIA GURNEY FROM GI LAB. PATIENT IS AWAKE AND ALERT, ABLE TO AMBULATE FROM GURPACIFIC TO THE BATHROOM AND THEN TO HER BED. DENIES ANY PAIN OR DISCOMFORT. HL PATENT RT HAND. NO ACUTE DISTRESS NOTED. RECEIVED REPORT THAT PATIENT IS + H PYLORI. PER LISA MARKS GI LAB NURSE DR ROSAS WAS NOTIFED, ALREADY.
--- NOTE | 2019-01-09 14:40 | NUR ---
PATIENT IS SITTING UP IN BED. TOLERATED LUNCH TRAY WELL. NO C/O ABD PAIN OR DISCOMFORT. DR ROSAS AND DESIRE PAPIER MACHE' MOLDER AWARE OF POSITIVE H PYLORI RESULT. NEW ORDERS RECEIVED.
--- NOTE | 2019-01-09 15:25 | NUR ---
PATIENT WAS SITTING UP IN BED TALKING ON PHONE. CONTINUES TO DENY ANY PAIN OR DISCOMFORT.
[2019-01-09 15:48] VITALS: BP 125/53
[2019-01-09 19:23] VITALS: BP 135/62
--- NOTE | 2019-01-09 20:04 | NUR ---
PT CURRENTLY RESTING IN BED, NO ACUTE DISTRESS. A/O X4. NO TELE, MED/SURG. DENIES CHEST PAIN. PULSES PALPABLE IN ALL EXTREMITIES, NO EDEMA NOTED. LUNG SOUNDS CTA BILATERALLY, DENIES SOB. BOWEL SOUNDS ACTIVE, LAST BM 01/09/19, WATERY STOOLS. C/O ABD PAIN 07/13, PT STATES PAIN TOLERABLE. VOIDING WELL. AMBULATORY. SKIN INTACT. BED IN LOWEST POSITION, SIDE RAILS UP X2, CALL LIGHT WITHIN REACH. WILL CONTINUE TO MONITOR.
--- NOTE | 2019-01-09 23:54 | NUR ---
PT CURRENTLY RESTING IN BED, NO ACUTE DISTRESS. WILL CONTINUE TO MONITOR.
--- NOTE | 2019-01-10 00:21 | NUR ---
ENDORSED CARE TO CONSUELO MARKS.
--- NOTE | 2019-01-10 00:35 | NUR ---
RECEIVED PT FROM KENDRICK PLAZA, PT LAYING DOWN IN BED WITH EYES CLOSED. BREATHING EVEN AND UNLABORED ON RA. NO ACUTE DISTRESS NOTED. BED AT LOWEST SETTITING, SIDE RAILS X2 UP. CALL LIGHT WITHING REACH. WILL CONTINUE TO MONITOR.
[2019-01-10 05:22] VITALS: BP 143/64
[2019-01-10 06:08] LABS: PLATELET COUNT 228 x10^3mcL (130-400)
--- NOTE | 2019-01-10 06:13 | NUR ---
PT SLEPT AT INTERVALS THROGHOUT THE NIGHT. BREATHING EVEN AND UNLABORED ON RA. NO ACUTE DISTRESS NOTED. N0 SIGNIFICANT CHANGE DURING SHIF. ALL NEEDS ASSESSED AND ATTENDED TO. BED AT LOWEST SETTING. SIDE RAILS X2 UP. CALL LIGHT WITHING REACH. WILL ENDORSE CARE TO AM NURSE.
[2019-01-10 06:16] LABS: CARBON DIOXIDE 29.4 mmol/L (21-32); CHLORIDE SERUM 109 mmol/L (98-107); CREATININE SERUM 0.7 mg/dL (0.6-1.0); GFR1 > 60 mL/min; GLUCOSE SERUM 174 mg/dL (74-106); POTASSIUM SERUM 4.2 mmol/L (3.5-5.1); SODIUM SERUM 143 mmol/L (136-145)
--- NOTE | 2019-01-10 07:19 | NUR ---
CARE ENDORSED TO KRISTOPHER MARKS
[2019-01-10 07:25] VITALS: BP 150/77
[2019-01-10 07:25] LABS: RED CELL DISTRIBUTION WIDTH 16.8 % (11.5-14.5)
--- NOTE | 2019-01-10 07:45 | NUR ---
RECEIVED THIS AM IN NO RESP. DISTRESS. AWAKE AND ALERT. UP AND ABOUT. NO C/O PAIN OR DISCOMFORT AT THIS TIME. VS WNL. CALL LIGHT WITHIN REACH. WILL CONTINUE WITH PLAN OF CARE.
--- NOTE | 2019-01-10 09:52 | NUR ---
C/O MID ABD. PAIN, MEDICATED WITH LEVSIN PO PER ORDER.
[2019-01-10] MEDS ORDERED: GOOD SENSE OMEP20 MG PO (11:15)
[2019-01-10] MEDS ORDERED: LEVAQUIN750 MG PO (11:15)
[2019-01-10] MEDS ORDERED: FLA500 PO (11:15)
[2019-01-10 11:52] VITALS: BP 150/77
--- NOTE | 2019-01-10 12:51 | NUR ---
SHAHEED. WELL WITH MEALS, NO N/V NOR ABD. DISCOMFORT. NO CHANGES IN VS. PT WILL BE DC'D HOME THIS AFTERNOON. STATED WILL HAVE RIDE HOME AFTER 5PM
[2019-01-10 16:45] VITALS: BP 142/45
--- NOTE | 2019-01-10 18:22 | NUR ---
PT STILL WAITING FOR FAMILY. NO ACUTE RESP. DISTRESS NOTED. DC INSTRUCTIONS REVIEWED WITH PT, PT VERBALIZED UNDERSTANDING. RX GIVEN. HL REMOVED AND SITE CLEAR. NO C/O PAIN OR DISCOMFORT AT THIS TIME.
--- NOTE | 2019-01-10 19:47 | NUR ---
FAMILY HERE TO BOOK MENDER PT. PT TAKEN TO LOBBY IN WHEELCHAIR. ALL QUESTIONS ANSWERED. IN STABLE CONDITION TO BE DISCHARGED
== END 2019-01-10 19:41 | disposition home or self-care (01) | DRG 391 ==
LOC: ED 11:31 → MU 14:33
PROVIDERS: Internal Medicine Gastroenterology; ADMIT Internal Medicine
PROC: 0DB78ZX Excision of Stomach, Pylorus, Via Natural or Artificial Opening Endoscopic, Diagnostic (ICD-10-PCS; principal; 2019-01-09 12:30)
PROC: 0DJD8ZZ Inspection of Lower Intestinal Tract, Via Natural or Artificial Opening Endoscopic (ICD-10-PCS; 2019-01-09 12:30)
DX: K57.30 Diverticulosis of large intestine without perforation or abscess without bleeding (principal); K85.90 Acute pancreatitis without necrosis or infection, unspecified; K52.9 Noninfective gastroenteritis and colitis, unspecified; E11.65 Type 2 diabetes mellitus with hyperglycemia; B96.81 Helicobacter pylori [H. pylori] as the cause of diseases classified elsewhere; I10 Essential (primary) hypertension; Z79.82 Long term (current) use of aspirin; Z79.4 Long term (current) use of insulin; Z86.73 Personal history of transient ischemic attack (TIA), and cerebral infarction without residual deficits
CPT/HCPCS: 43235; 45378; 82962; 87046; 87046-59; G0378; J1200; J1610; J1885; J2250; J2270; J2310; J2405; J3010; J3490; J7030; J7042; J7050

== ENCOUNTER 2019-04-27 16:45 | Emergency (ER) | payer OTHER ==
[~2019-04-27] VITALS: Ht 152.4 cm; Wt 68.5 kg
[~2019-04-27 16:45] MED LIST changes: +ASPIR 8181 MG PO; +FLA500 PO; +GOOD SENSE OMEP20 MG PO; +HYDRALAZINE HCL25 MG PO; +LEVAQUIN750 MG PO; +METFORMIN850 M1 PO; +NOR10 PO; +NOVOLOG FLEX100 U/M1 SC; +TOUJEO300 U/ML SC
[2019-04-27 17:04] VITALS: Ht 152.4 cm; Wt 68.5 kg
[2019-04-27 18:15] VITALS: BP 152/79
== END 2019-04-27 18:15 | disposition home or self-care (01) ==
LOC: ED 16:45
DX: G62.9 Polyneuropathy, unspecified (principal); I10 Essential (primary) hypertension; E11.9 Type 2 diabetes mellitus without complications; E78.00 Pure hypercholesterolemia, unspecified; Z90.49 Acquired absence of other specified parts of digestive tract; Z90.89 Acquired absence of other organs; Z88.0 Allergy status to penicillin; Z86.73 Personal history of transient ischemic attack (TIA), and cerebral infarction without residual deficits
CPT/HCPCS: J1885

== ENCOUNTER 2020-04-03 14:04 | Emergency (ER) | payer OTHER, SELFPAY ==
[~2020-04-03] VITALS: Ht 149.9 cm; Wt 68.0 kg
[2020-04-03 14:05] VITALS: Ht 149.9 cm; Wt 68.0 kg
[2020-04-03 17:55] VITALS: BP 129/69
== END 2020-04-03 17:55 | disposition home or self-care (01) ==
LOC: ED 14:04
DX: I16.0 Hypertensive urgency (principal); R19.7 Diarrhea, unspecified; I10 Essential (primary) hypertension; E11.9 Type 2 diabetes mellitus without complications; E78.00 Pure hypercholesterolemia, unspecified; Z20.828 Contact with and (suspected) exposure to other viral communicable diseases; Z86.73 Personal history of transient ischemic attack (TIA), and cerebral infarction without residual deficits; Z90.89 Acquired absence of other organs; Z90.49 Acquired absence of other specified parts of digestive tract; Z88.0 Allergy status to penicillin
CPT/HCPCS: U0003